=== PATIENT | male | born 1975 | race Caucasian/White ===

== ENCOUNTER 2021-09-07 01:56 | Day surgery (SDC) | payer OTHER, SELFPAY ==
[2021-08-25 14:19] VITALS: BMI 34.7
--- NOTE | 2021-09-06 13:38 | PM.HPGS ---
History of Present Illness History of Present Illness Consent: Risks, benefits, and alternatives have been discussed and questions answered. Patient agrees to proceed with procedure. Chief complaint: GERD Narrative: Angeline Zarate Jr. is a 46 year old malewith LT-sided chest pain. Has been very stressed, daughter has been ill, he is busy with work. 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 Was chewing tobacco for 30 year, has recently quit. In last 2.5 wks, has started to have pain in LT chest. Constant pain, no association with eating, belching in the morning, has gas all the time, drinking coffee makes it worse, gas worse laying down at night. Pain is not radiating to jaw, back, or extremities. Notices in LT side of chest, sometimes spreads to RT. Notices burning down his esophagus. Started taking esomeprazole at direction of his for his sx 5 days, ago, started to help. Taking Tums occasionally for breakthrough pain. Reports feeling heart palpitations with excitement, not at rest. after taking Nexium for 3 weeks or so he is somewhat better but still has some burning. He denies dysphagia Review of Systems Review of Systems: All systems reviewed & are unremarkable except as noted in HPI and below PMFSH Past Medical History Medical History Benign essential HTN Surgical History Surgical History History of laparoscopic cholecystectomy Family History Family History Father Hypertension Family history of elevated blood lipids Mother Family history of malignant neoplasm of uterus Daughter Neuromyelitis Son ADHD Social History Social History Social History: Years smoked: 30 Smoking status: Former smoker Tobacco type: smokeless tobacco Smokeless tobacco user: chewing tobacco Second hand tobacco smoke exposure: No Smoking end date: 07/18/21 Alcohol intake: current Alcohol use details: Pt drinks on weekends only. Unsure how much he drinks. Substance use: never Substance use type: does not use Gender identity (if verbalized by the patient): Male Sexual Orientation (if Verbalized by the Patient): Straight or Heterosexual Meds Home Medications and Allergies Home Medications Medication Instructions Recorded Confirmed Type amlodipine 5 mg tablet 5 mg PO QPM #30 tablet 08/01/21 09/04/21 Rx lisinopril 10 1 tablet PO DAILY #30 tablet 08/23/21 08/25/21 Rx mg-hydrochlorothiazide 12.5 mg tablet esomeprazole magnesium [Nexium] 20 mg PO DAILY 08/25/21 09/04/21 History Allergies Allergy/AdvReac Type Severity Reaction Status Date / Time Penicillins Allergy Mild SOB and Verified 09/07/21 11:44 rash Exam Const: General: alert Orientation/consciousness: patient oriented x3 Resp: Auscultation: clear to auscultation bilaterally Cardio: Rhythm: regular rhythm GI: GI Palp: Yes Soft to palpation and No Tenderness to palpation present (GI) Neuro: General: patient oriented x3 Assessment and Plan Assessment and plan (1) GERD (gastroesophageal reflux disease): Code(s): K21.9 - Gastro-esophageal reflux disease without esophagitis Status: Acute Assessment and Plan: EGD with possible biopsy or dilatation or cautery.
[2021-09-07 11:46] VITALS: BP 161/81; PULSE 99; RESP 18; TEMP 36.3; O2SAT 98
[2021-09-07] MEDS: LACTATED RINGERS 1,000 ML 150 ML IV CONT (11:50)
--- NOTE | 2021-09-07 12:18 | WPDANESEPPF ---
Anes - Initial Pre Proc Eval Procedure: Operation Date: 09/07/21 13:00 Proposed Procedures p Esophagogastroduodenoscopy - Jermain Quinones MD Date/Time: 09/07/21 12:18 Surgeon: Jermain Quinones MD Pre Op Diagnosis: GERD Patient Data Age: 46 Gender: M Height: 1.75 m Weight: 106.7 kg Last Vital Signs Temp 97.3 F L 09/07/21 11:46 Pulse 99 09/07/21 11:46 Resp 18 09/07/21 11:46 BP 161/81 H 09/07/21 11:46 Pulse Ox 98 09/07/21 11:46 Allergies Allergy/AdvReac Type Severity Reaction Status Date / Time Penicillins Allergy Mild SOB and Verified 09/07/21 11:44 rash Home Medications Medication Instructions Recorded Confirmed Type amlodipine 5 mg tablet 5 mg PO QPM #30 tablet 08/01/21 09/04/21 Rx lisinopril 10 1 tablet PO DAILY #30 tablet 08/23/21 08/25/21 Rx mg-hydrochlorothiazide 12.5 mg tablet esomeprazole magnesium [Nexium] 20 mg PO DAILY 08/25/21 09/04/21 History Patient hx anesthesia problems: none Family hx anesthesia problems: none Results Review: All pre-operative results and documents have been reviewed as part of the pre-operative evaluation. [facility] Past Medical History Medical History (Updated 09/04/21 @ 22:13 by Nellie Rhoades MD) Benign essential HTN Surgical History Surgical History History of laparoscopic cholecystectomy Family History Family History Father Hypertension Family history of elevated blood lipids Mother Family history of malignant neoplasm of uterus Daughter Neuromyelitis Son ADHD Social History Social History (Updated 08/23/21 @ 07:54 by Melissa Ba) Social History: Years smoked: 30 Smoking status: Former smoker Tobacco type: smokeless tobacco Smokeless tobacco user: chewing tobacco Second hand tobacco smoke exposure: No Smoking end date: 07/18/21 Alcohol intake: current Alcohol use details: Pt drinks on weekends only. Unsure how much he drinks. Substance use: never Substance use type: does not use Gender identity (if verbalized by the patient): Male Sexual Orientation (if Verbalized by the Patient): Straight or Heterosexual Anes - Eval Final PreProcedure Day of Procedure 09/07/21 12:18 Patient weight: obese Heart: regular rate and rhythm Lungs: clear to auscultation Airway: Mallampati scale class II Neurological: alert and oriented Last oral intake: >/= 8 hours ASA classification: II Emergent: no Anesthetic plan: proceed Anesthesia type and monitoring: general GIVS and standard monitoring Results Review: All pre-operative results and documents have been reviewed as part of the pre-operative evaluation. Informed Consent: The patient's anesthetic plan and its attendant risks and benefits were discussed with the patient/family/POA. Questions were solicited and answers provided to the satisfaction of the patient/family/POA.
[2021-09-07 13:07] VITALS: BP 105/71; PULSE 80; RESP 25; O2SAT 100
[2021-09-07 13:17] VITALS: BP 119/74; PULSE 71; RESP 17; O2SAT 99
[2021-09-07 13:27] VITALS: BP 126/80; PULSE 69; RESP 17; O2SAT 100
== END 2021-09-07 13:39 | disposition home or self-care (01) ==
PROVIDERS: PCP Family Medicine; Visit Provider Internal Medicine Gastroenterology
PROC: 0DJ08ZZ Inspection of Upper Intestinal Tract, Via Natural or Artificial Opening Endoscopic (ICD-10-PCS; CPT 43235; principal; 2021-09-07 13:00)
DX: K21.9 Gastro-esophageal reflux disease without esophagitis (principal); I10 Essential (primary) hypertension; F17.220 Nicotine dependence, chewing tobacco, uncomplicated
CPT/HCPCS: 43235; J2704; J7120

== ENCOUNTER 2025-07-18 11:57 | Emergency (ER) | payer OTHER, SELFPAY ==
[2025-07-18 12:05] VITALS: BP 183/102; PULSE 83; RESP 20; TEMP 36.6; O2SAT 100
--- NOTE | 2025-07-18 12:24 | ED.GENADULT ---
HPI - General Adult General Chief complaint: Unspecified Stated complaint: bp out of whack Related Data Allergies Allergy/AdvReac Type Severity Reaction Status Date / Time Penicillins Allergy Mild SOB and Verified 07/18/25 12:13 rash PMFSH Past Medical History Medical History (Updated 07/18/25 @ 12:27 by Elda Aaron APRN, PROSTHODONTIST/OWNER-C) Benign essential HTN Surgical History Surgical History (Updated 09/27/21 @ 08:45 by Nellie Rhoades MD) History of esophagogastroduodenoscopy History of laparoscopic cholecystectomy 08/2021 Family History Family History Father Hypertension Family history of elevated blood lipids Mother Family history of malignant neoplasm of uterus Daughter Neuromyelitis Son ADHD Social History Social History (Updated 09/27/21 @ 08:03 by Melissa Ba) Social History: Years smoked: 30 Smoking status: Former smoker Tobacco type: smokeless tobacco Smokeless tobacco user: chewing tobacco Second hand tobacco smoke exposure: No Smoking end date: 07/18/21 Alcohol intake: current Drinks per week: 3 Substance use: never Substance use type: does not use Living arrangements: with family Occupation/Education: occupation Gender identity (if verbalized by the patient): Male Sexual Orientation (if Verbalized by the Patient): Straight or Heterosexual Course Course Level of Care: Express Care Visit Vital Signs Vital signs: Vital Signs Temperature 97.9 F 07/18/25 12:05 Pulse Rate 83 07/18/25 12:05 Respiratory Rate 20 07/18/25 12:05 Blood Pressure 183/102 H 07/18/25 12:05 Pulse Oximetry 100 07/18/25 12:05 Oxygen Delivery Room Air 07/18/25 12:05 Temperature 97.9 F 07/18/25 12:05 Pulse Rate 83 07/18/25 12:05 Respiratory Rate 20 07/18/25 12:05 Blood Pressure 183/102 H 07/18/25 12:05 Pulse Oximetry 100 07/18/25 12:05 Oxygen Delivery Room Air 07/18/25 12:05 Medical Decision Making MDM Narrative Medical decision making narrative: will restart patient's blood pressure medication. Educated patient on how to take blood pressure at home, also noted review DASH diet. educated patient several signs and symptoms that would need ER evaluation The patient [facility]. History is obtained from patient who is an independent historian and physical exam was performed. Available medical records were reviewed at this time. Exam findings show no acute concerns or changes; patient is non-toxic appearing and is in no distress. Patient is appropriate for outpatient treatment and follow-up. I have evaluated and discussed social determinants of health with the patient that could potentially impact subsequent diagnosis and treatment plans. Differential diagnosis and treatment plan were discussed with the patient. Patient agrees with discussion and after shared medical decision making agrees with plan of care. All questions were answered to the patient's satisfaction. Differential Diagnosis Differential Diagnosis: elevated blood pressure, hypertension headache, migraine Medical Records Medical records reviewed: Yes I reviewed the external patient's medical records. Vital Signs Vital Signs: Vital Signs Temperature 97.9 F 07/18/25 12:05 Pulse Rate 83 07/18/25 12:05 Respiratory Rate 20 07/18/25 12:05 Blood Pressure 183/102 H 07/18/25 12:05 Pulse Oximetry 100 07/18/25 12:05 Oxygen Delivery Room Air 07/18/25 12:05 Temperature 97.9 F 07/18/25 12:05 Pulse Rate 83 07/18/25 12:05 Respiratory Rate 20 07/18/25 12:05 Blood Pressure 183/102 H 07/18/25 12:05 Pulse Oximetry 100 07/18/25 12:05 Oxygen Delivery Room Air 07/18/25 12:05 Discharge Plan Discharge Clinical Impression: Elevated blood pressure reading, Headache Patient Disposition: Home Condition: Stable Instructions: Antibiotic Form, DASH Eating Plan (ED), Hypertension (ED) Additional Instructions: start taking the lisinopril daily Again take your blood pressure twice daily once once in the evening and keep a record of this until you follow-up with primary care recommended to lower your salt intake and follow a dash diet. The began to notice chest pain, shortness of breath, significant dizziness, increased headache, or more vision changes go to the emergency room for evaluation. Patient Language: Haitian Prescriptions: New lisinopril-hydrochlorothiazide [Zestoretic] 10-12.5 mg tablet 1 tablet PO DAILY Qty: 90 0RF No Action amlodipine 5 mg tablet 5 mg PO QPM Qty: 90 1RF lisinopril-hydrochlorothiazide 10-12.5 mg tablet 1 tablet PO DAILY Qty: 90 1RF famotidine 20 mg tablet See Rx Instructions .ROUTE .COMPLEX Qty: 60 2RF Dose Instruction: TAKE 1 TABLET BY MOUTH TWICE DAILY Rx Instructions: TAKE 1 TABLET BY MOUTH TWICE DAILY Follow-up/Referrals: Nellie Rhoades MD [Primary Care Provider, Family Practice] Time of Disposition: 12:28
--- NOTE | 2025-07-18 12:34 | ED_ITS ---
HPI - Headache General Chief Complaint: Unspecified Stated Complaint: bp out of whack patient presents to the [facility] with complaints of elevated blood pressure at home today. Patient noted over the last few days he has just not felt well occasionally having some blurry vision when looking at his phone, headache, and flushing to face. Patient noted today daughter who is a nurse told him to take his blood pressure this was significantly elevated. Patient reports taking a 10 mg lisinopril that is his 's prescription Because he was nervous about the number of his blood pressure. Patient reports taking blood pressure medications several years ago but he believes this was due to stress in his life at the time. Noted that he stop taking this medication and did not have any follow-ups with his primary care physician. Has not taken any blood pressure readings over the last several years due to overall feeling well. Currently denies chest pain, shortness of breath, palpitations, chest fluttering, like swelling, dizziness, or vision changes. Related Data Allergies Allergy/AdvReac Type Severity Reaction Status Date / Time Penicillins Allergy Mild SOB and Verified 07/18/25 12:13 rash Review of Systems Constitutional: Constitutional: Reports as per HPI, Denies chills, Denies fatigue, Denies fever(s) and Denies weakness Comments: not feeling well Eyes: Eyes: Reports as per HPI, Reports change in vision and Denies photophobia ENT: Reports as per HPI, Denies vertigo and Denies dizziness Cardiovascular: Cardiovascular: Reports as per HPI, Denies chest pain, Denies rapid heart rate, Denies radiating jaw, neck or arm pain and Denies slow heart rate Comments: elevated blood pressure at home Respiratory: Respiratory: Reports no additional respiratory complaints Gastrointestinal: Gastrointestinal: Reports no additional gastrointestinal complaints Genitourinary: Genitourinary: Reports no additional male genitourinary complaints Musculoskeletal: Musculoskeletal: Reports as per HPI, Denies back pain and Denies myalgias Integumentary/Breasts: Skin/Breast: Reports as per HPI, Denies erythema, Denies rash and Denies skin ulcer Comments: flushing feeling to face Neurologic: Reports as per HPI, Denies vertigo, Denies dizziness, Reports headache(s), Denies numbness and Denies weakness Psychiatric: Psychiatric: Reports no additional psychiatric complaints Endocrine: Endocrine: Reports no additional endocrine complaints Hematologic/Lymphatic: Hematologic/Lymphatic: Reports no additional hematologic/lymphatic complaints Allergic/Immunologic: Allergic/Immunologic: Reports no additional allergic/immunologic complaints [facility] Past Medical History Medical History (Updated 07/18/25 @ 12:27 by Elda Aaron APRN, HEARING DOG TRAINER-C) Benign essential HTN Surgical History Surgical History (Updated 09/27/21 @ 08:45 by Nellie Rhoades MD) History of esophagogastroduodenoscopy History of laparoscopic cholecystectomy 08/2021 Family History Family History Father Hypertension Family history of elevated blood lipids Mother Family history of malignant neoplasm of uterus Daughter Neuromyelitis Son ADHD Social History Social History (Updated 09/27/21 @ 08:03 by Melissa Ba) Social History: Years smoked: 30 Smoking status: Former smoker Tobacco type: smokeless tobacco Smokeless tobacco user: chewing tobacco Second hand tobacco smoke exposure: No Smoking end date: 07/18/21 Alcohol intake: current Drinks per week: 3 Substance use: never Substance use type: does not use Living arrangements: with family Occupation/Education: occupation Gender identity (if verbalized by the patient): Male Sexual Orientation (if Verbalized by the Patient): Straight or Heterosexual Exam Const: General: healthy appearing and no acute distress Nutritional Appearance: well nourished Orientation/consciousness: patient oriented x3 Limitations: no limitations HENMT: Head: normal to inspection Ears: external ears normal and TM's normal bilaterally Mouth: Yes Normal oral and palatal mucosa present, Yes lip normal and Yes moist mucous membranes abnormal Throat: posterior oropharynx normal Eyes: Conjunctivae: conjunctivae normal Pupils: Equal, round and reactive pupils present EOM: EOMs intact bilaterally Direct Ophthalmoscopy: no photophobia Neck: Neck: normal visual inspection and no lymphadenopathy Chest: Chest palpation & inspection: normal inspection of the chest Resp: Effort & Inspection: normal respiratory effort Auscultation: clear to auscultation bilaterally Cardio: Rate: regular rate Rhythm: regular rhythm Skin: General skin exam: normal color Rashes: no rashes Wounds: no wounds Other: no flushing noted to chest, face,or neck Neuro: General: patient oriented x3, moves all extremities and no meningeal signs Cranial nerves: Yes Nystagmus not present Speech: normal speech Gait exam (Neuro): Normal gait present Extrem: General: normal to inspection, no clubbing, cyanosis or edema and no pedal edema Psych: Mental Status: mental status grossly normal Affect: normal affect Attitude: cooperative Course Course Level of Care: Express Care Visit Vital Signs Vital signs: Vital Signs Temperature 97.9 F 07/18/25 12:05 Pulse Rate 83 07/18/25 12:05 Respiratory Rate 20 07/18/25 12:05 Blood Pressure 183/102 H 07/18/25 12:05 Pulse Oximetry 100 07/18/25 12:05 Oxygen Delivery Room Air 07/18/25 12:05 Temperature 97.9 F 07/18/25 12:05 Pulse Rate 83 07/18/25 12:05 Respiratory Rate 20 07/18/25 12:05 Blood Pressure 183/102 H 07/18/25 12:05 Pulse Oximetry 100 07/18/25 12:05 Oxygen Delivery Room Air 07/18/25 12:05 MDM - Headache MDM Narrative Medical decision making narrative: Spoke patient his elevated pressure while in Express Care today. Noted he needs to start taking his blood pressure again in follow-up with primary care physician as soon as possible. Recommended patient take blood pressure twice daily until follow-up with new primary care physician. Recommended patient follow a dash diet. Educated patient on several signs and symptoms that should be evaluated in the emergency room. The patient was evaluated by myself in the [facility] care. History is obtained from patient who is an independent historian and physical exam was performed. Available medical records were reviewed at this time. Exam findings show no acute concerns or changes; patient is non-toxic appearing and is in no distress. Patient is appropriate for outpatient treatment and follow-up. I have evaluated and discussed social determinants of health with the patient that could potentially impact subsequent diagnosis and treatment plans. Differential diagnosis and treatment plan were discussed with the patient. Verna ent agrees with discussion and after shared medical decision making agrees with plan of care. All questions were answered to the patient's satisfaction. Differential Diagnosis Differential diagnosis: Likely migraine, tension headache, headache, meningitis, postconcussion syndrome and other (elevated blood pressure ) Medical Records Attestation: I reviewed the patient's medical records. Discharge Plan Discharge Clinical Impression: Elevated blood pressure reading, Headache Patient Disposition: Home Condition: Stable Instructions: Antibiotic Form, DASH Eating Plan (ED), Hypertension (ED) Additional Instructions: start taking the lisinopril daily Again take your blood pressure twice daily once once in the evening and keep a record of this until you follow-up with primary care recommended to lower your salt intake and follow a dash diet. The began to notice chest pain, shortness of breath, significant dizziness, increased headache, or more vision changes go to the emergency room for evaluation. Patient Language: Romanian Prescriptions: New lisinopril-hydrochlorothiazide [Zestoretic] 10-12.5 mg tablet 1 tablet PO DAILY Qty: 90 0RF No Action amlodipine 5 mg tablet 5 mg PO QPM Qty: 90 1RF lisinopril-hydrochlorothiazide 10-12.5 mg tablet 1 tablet PO DAILY Qty: 90 1RF famotidine 20 mg tablet See Rx Instructions .ROUTE .COMPLEX Qty: 60 2RF Dose Instruction: TAKE 1 TABLET BY MOUTH TWICE DAILY Rx Instructions: TAKE 1 TABLET BY MOUTH TWICE DAILY Follow-up/Referrals: Nellie Rhoades MD [Primary Care Provider, Family Practice] Time of Disposition: 12:28
== END 2025-07-18 12:30 | disposition home or self-care (01) ==
PROVIDERS: Emergency Provider Nurse Practitioner Family; PCP Family Medicine
DX: I10 Essential (primary) hypertension (principal); R51.9 Headache, unspecified
CPT/HCPCS: 99213; G0463

== ENCOUNTER 2025-07-21 16:44 | Emergency (ER) | payer OTHER, SELFPAY ==
[2025-07-21] VITALS (40 sets, daily range): BP systolic 137–189; BP diastolic 86–117; PULSE 61–95; RESP 8–23; TEMP 36.9; O2SAT 85–100
--- NOTE | ~2025-07-21 | XR_ITS ---
EXAMINATION: XR chest 2V, 07/21/2025 17:15 COMMUNITY RECREATION COORDINATOR HISTORY: chest pain WITH ELEVATED BP COMPARISON: No comparisons available. Technique: 2 views obtained. Findings: The lungs are clear, no effusion. No pneumothorax. Heart is normal size. Mediastinal and hilar contours are within normal limits. Bony thorax no acute abnormality. Impression: No acute cardiopulmonary abnormality. Reviewed, dictated and finalized at location P. UNITY RECREATION COORDINATOR Impression: No acute cardiopulmonary abnormality.
--- NOTE | 2025-07-21 16:45 | ECG_ITS ---
Test Date: 2025-07-21 18:29:17 Measurements Intervals [place] Rate: 82 P: 46 HI: 128 QRS: 27 QRSD: 106 T: 18 QT: 359 QTc: 420 Interpretive Statements SINUS RHYTHM MODERATE ST DEPRESSION [0.05+ mV ST DEPRESSION] No previous ECG available for comparison Electronically Signed On 07-21-2025 21:28:13 COMMUNICATIONS PLANNER by Vazquez Victoria M.D.
--- OUTSIDE RECORDS SUMMARY | 2025-07-21 17:01 | XMS_ITS ---
Author Organization Unknown ENCOUNTERS Encounter Performer Location Date Diagnosis Diagnosis Status Pre Admit [facility] [address] [place] [address] [id number] Outpatient Jermain Quinones [facility] [address] [place] [address] [id number] [place] *Note: Encounters from your own facility or health system may be excluded. Allergies, Adverse Reactions, Alerts Allergen Type Severity Identification Date Penicillins drug allergy 2 [id number] Medications Name Date Quantity Days Supplied GPI Number
--- NOTE | 2025-07-21 17:52 | ED_ITS ---
HPI - Chest Pain General Chief Complaint: Chest Pain <HAMILTON Oglesby - Last Filed: 07/22/25 15:49> Stated Complaint: chest pain <HAMILTON Oglesby - Last Filed: 07/22/25 15:49> Time Seen by Provider: 07/21/25 17:53 <HAMILTON Oglesby - Last Filed: 07/22/25 15:49> Focused HPI: 50 year old male presenting with hypertension since this morning. Associated symptoms include cp and mild headache. Denies vision changes, fevers/chills, nausea/vomiting. Cp is right-sided and does not radiate anywhere. GENERAL: Well-appearing, well-nourished, and in no acute distress. HEAD: Normocephalic, atraumatic. CHEST: Clear to auscultation. ?No respiratory distress. HEART: Regular rate and rhythm.? NEURO: ?Alert and oriented x3. Patient screened in triage and initial orders placed.? ?Additional care and disposition to be based upon?diagnostic testing and treatment. <HAMILTON Oglesby - Last Filed: 07/22/25 15:49> History of Present Illness HPI narrative: I agree with the above HPI <Dayana Orellana APRN - Last Filed: 07/21/25 23:26> Related Data Allergies/Adverse Reactions: Allergies Allergy/AdvReac Type Severity Reaction Status Date / Time Penicillins Allergy Mild SOB and Verified 07/21/25 19:02 rash <HAMILTON Oglesby - Last Filed: 07/22/25 15:49> Review of Systems 2 Review of Systems: All systems reviewed & are unremarkable except as noted in HPI and below <Dayana Orellana APRN - Last Filed: 07/21/25 23:26> PMFSH Past Medical History Medical History: Medical History Benign essential HTN <HAMILTON Oglesby - Last Filed: 07/22/25 15:49> Surgical History Surgical History: Surgical History History of esophagogastroduodenoscopy History of laparoscopic cholecystectomy 08/2021 <HAMILTON Oglesby - Last Filed: 07/22/25 15:49> Family History Family History: Family History Father Hypertension Family history of elevated blood lipids Mother Family history of malignant neoplasm of uterus Daughter Neuromyelitis Son ADHD <HAMILTON Oglesby - Last Filed: 07/22/25 15:49> Social History Social History: Social History Social History: Years smoked: 30 Tobacco type: smokeless tobacco Smokeless tobacco user: chewing tobacco Second hand tobacco smoke exposure: No Smoking end date: 07/18/21 Alcohol intake: current Drinks per week: 3 Substance use: never Substance use type: does not use Living arrangements: with family Occupation/Education: occupation Gender identity (if verbalized by the patient): Male Sexual Orientation (if Verbalized by the Patient): Straight or Heterosexual <HAMILTON Oglesby - Last Filed: 07/22/25 15:49> Exam 2 Narrative: GENERAL: Well appearing, well-nourished, non-toxic, in no acute distress. HEAD: Normocephalic, atraumatic. NECK: Supple. No adenopathy, no masses. RESPIRATORY: Airway patent, respirations nonlabored. Clear to auscultation bilaterally, no rales, rhonchi, wheezing. CARDIOVASCULAR: Regular rate and rhythm without murmurs, rubs, or gallops. Peripheral pulses 2+ and equal bilaterally. ABDOMINAL: Soft, nontender, nondistended, no hepatosplenomegaly. Normoactive BS. MUSCULOSKELETAL: Moves all extremities. Strength/ROM intact without gross deformities. SKIN: Warm, dry, normal color. No rashes. NEURO: A&O X3. Speech clear. Cranial nerves II-XII intact. No ataxic movements. PSYCHIATRIC: Appropriate mood and affect. Normal interaction. <Dayana Orellana APRN - Last Filed: 07/21/25 23:26> Course Vital Signs Vital signs: Vital Signs Temperature 98.5 F 07/21/25 16:59 Pulse Rate 95 07/21/25 16:59 Respiratory Rate 16 07/21/25 16:59 Blood Pressure 175/99 H 07/21/25 16:59 Pulse Oximetry 100 07/21/25 16:59 Temperature 98.5 F 07/21/25 16:59 Pulse Rate 85 07/21/25 23:30 Respiratory Rate 18 07/21/25 23:30 Blood Pressure 161/92 H 07/21/25 23:02 Pulse Oximetry 85 L 07/21/25 23:30 Oxygen Delivery Room Air 07/21/25 19:05 <HAMILTON Oglesby - Last Filed: 07/22/25 15:49> Vital Signs Temperature 98.5 F 07/21/25 16:59 Pulse Rate 95 07/21/25 16:59 Respiratory Rate 16 07/21/25 16:59 Blood Pressure 175/99 H 07/21/25 16:59 Pulse Oximetry 100 07/21/25 16:59 Temperature 98.5 F 07/21/25 16:59 Pulse Rate 85 07/21/25 23:30 Respiratory Rate 18 07/21/25 23:30 Blood Pressure 161/92 H 07/21/25 23:02 Pulse Oximetry 85 L 07/21/25 23:30 Oxygen Delivery Room Air 07/21/25 19:05 <Dayana Orellana APRN - Last Filed: 07/21/25 23:26> MDM - Chest Pain MDM Narrative Medical decision making narrative: Patient is a 50-year-old male who presents to the ER with chest dullness and high blood pressure. He reports he went to urgent care approximately 1 week ago and they started him on lisinopril. Patient reports he has not had any associated symptoms including headaches, shortness of breath, lower extremity swelling. He does endorse a slight cough for the past several weeks. Patient is adamant he is not having chest pain but rather dullness. Since starting the lisinopril he endorses diarrhea, but denies abdominal pain. He also denies any recent fevers, shortness of breath, nausea/vomiting, or increased pain with movement changes. Patient endorses a history of high blood pressure and reports he was on lisinopril and amlodipine in the past. He also reports he has been on GERD medications in the past. Labs Ordered: CBC, CMP, troponin, proBNP, PTT, INR, D-dimer, lipase, TSH Imaging Ordered: Chest x-ray Medications Ordered: Ativan 1 mg p.o., Norvasc 5 mg p.o., GI cocktail Results: Patient's chest x-ray indicates The lungs are clear, no effusion. No pneumothorax. Heart is normal size. Mediastinal and hilar contours are within normal limits. Bony thorax no acute abnormality. Diagnosis: GERD, atypical chest pain, primary hypertension Risks: HEART score: low risk HEART Score for Major Cardiac Events from [employer] on 07/21/2025 All calculations should be rechecked by clinician prior to use RESULT SUMMARY: 3 points Low Score (0-3 points) Risk of MACE of 0.9-1.7%. INPUTS: History ?> 0 = Slightly suspicious EKG ?> 1 = Non-specific repolarization disturbance Age ?> 1 = 45-64 Risk factors ?> 1 = 1-2 risk factors Initial troponin ?> 0 = <Normal limit Consults: cardiology (outpatient) Patient Education/Shared MDM: Results of lab work and imaging shared with patient. He endorses improvement of symptoms following medication administration. Patient strongly advised to maintain hydration status upon discharge and follow-up with his PCP as soon as possible. It was advised patient can also follow up with Cardiology for further evaluation and treatment. He will be discharged home with a prescription for amlodipine and Pepcid. Strict return precautions provided. Patient verbalized understanding and is in agreement with plan. Vital signs stable at time of discharge. All questions answered. <Dayana Orellana APRN - Last Filed: 07/21/25 23:26> Differential Diagnosis Differential diagnosis: Likely atypical chest pain, st elevation myocardial infarction, costochondritis and other (GERD, musculoskeletal strain, hypertension) <Dayana Orellana APRN - Last Filed: 07/21/25 23:26> Lab Data Attestation: I reviewed the patient's lab results. <Dayana Orellana APRN - Last Filed: 07/21/25 23:26> Result diagrams: 07/21/25 19:01 07/21/25 19:01 <HAMILTON Oglesby - Last Filed: 07/22/25 15:49> Labs: Lab Results 07/21/25 07/21/25 Range/Units 19:01 22:30 WBC 8.7 (4.5-10.0) K/mm3 RBC 5.32 (4.6-6.20) M/mm3 Hgb 17.1 (14.0-18.0) g/dL Hct 48.2 (42.0-52.0) % MCV 90.6 (80-100) fl MCH 32.1 (26-34) pg MCHC 35.5 (32-36) g/dl RDW 11.7 (11.5-14.5) % Plt Count 360 (150-375) k/mm3 MPV 11.3 H (7.4-10.4) fl Immature Gran % (Auto) 0.2 (0-0.5) % Neut % (Auto) 71.4 (45.5-73.1) % Lymph % (Auto) 19.1 (18.3-44.2) % [place] % (Auto) 8.2 (2.6-8.5) % Eos % (Auto) 0.5 (0-4.4) % Baso % (Auto) 0.6 (0.2-1.2) % Lymph # (Auto) 1.65 (0.9-3.2) K/mm3 [place] # (Auto) 0.7 H (0.1-0.6) K/mm3 Eos # (Auto) 0.0 (0-0.3) K/mm3 Baso # (Auto) 0.1 (0.0-0.1) K/mm3 Abs Immat Gran (auto) 0.02 (0.00-0.031) K/mm3 Absolute Neuts (auto) 6.2 (1.3-6.7) K/mm3 Absolute Nucleated RBC 0.000 (0.0-0.012) K/mm3 Nucleated RBC % 0.0 (0.0-0.2) % PT 13.2 (11.1-14.7) Seconds INR 1.0 APTT 26.3 (22.3-36.8) Seconds D-Dimer < 0.27 (<0.48) ug/mL Sodium 140 (137-145) mmol/L Potassium 3.5 (3.4-5.0) mmol/L Chloride 100 (98-107) mmol/L Carbon Dioxide 26 (22-30) mmol/L Anion Gap 14 H (4-12) mmol/L BUN 13 (9-20) mg/dL Creatinine 0.88 (0.7-1.3) mg/dL Estim Creat Clear Calc 106 ml/min Estimated GFR > 60 (59 - ) Glucose 105 (65-110) mg/dL Calcium 10.1 (8.4-10.2) mg/dL Total Bilirubin 1.1 (0.2-1.3) mg/dL AST 47 (17-59) U/L ALT 66 H (6-50) U/L Alkaline Phosphatase 71 (38-126) U/L Troponin I < 0.012 < 0.012 (0.000-0.034) ng/mL NT-Pro-B Natriuret Pep < 20 (19.9-100) pg/mL Total Protein 9.4 H (6.3-8.2) g/dL Albumin 5.3 H (3.5-5.1) g/dL Lipase 45 (23-300) U/L TSH (Reflex) 3.070 (0.465-4.68) uIU/mL <HAMILTON Oglesby - Last Filed: 07/22/25 15:49> Lab Results 07/21/25 07/21/25 Range/Units 19:01 22:30 WBC 8.7 (4.5-10.0) K/mm3 RBC 5.32 (4.6-6.20) M/mm3 Hgb 17.1 (14.0-18.0) g/dL Hct 48.2 (42.0-52.0) % MCV 90.6 (80-100) fl MCH 32.1 (26-34) pg MCHC 35.5 (32-36) g/dl RDW 11.7 (11.5-14.5) % Plt Count 360 (150-375) k/mm3 MPV 11.3 H (7.4-10.4) fl Immature Gran % (Auto) 0.2 (0-0.5) % Neut % (Auto) 71.4 (45.5-73.1) % Lymph % (Auto) 19.1 (18.3-44.2) % [place] % (Auto) 8.2 (2.6-8.5) % Eos % (Auto) 0.5 (0-4.4) % Baso % (Auto) 0.6 (0.2-1.2) % Lymph # (Auto) 1.65 (0.9-3.2) K/mm3 [place] # (Auto) 0.7 H (0.1-0.6) K/mm3 Eos # (Auto) 0.0 (0-0.3) K/mm3 Baso # (Auto) 0.1 (0.0-0.1) K/mm3 Abs Immat Gran (auto) 0.02 (0.00-0.031) K/mm3 Absolute Neuts (auto) 6.2 (1.3-6.7) K/mm3 Absolute Nucleated RBC 0.000 (0.0-0.012) K/mm3 Nucleated RBC % 0.0 (0.0-0.2) % PT 13.2 (11.1-14.7) Seconds INR 1.0 APTT 26.3 (22.3-36.8) Seconds D-Dimer < 0.27 (<0.48) ug/mL Sodium 140 (137-145) mmol/L Potassium 3.5 (3.4-5.0) mmol/L Chloride 100 (98-107) mmol/L Carbon Dioxide 26 (22-30) mmol/L Anion Gap 14 H (4-12) mmol/L BUN 13 (9-20) mg/dL Creatinine 0.88 (0.7-1.3) mg/dL Estim Creat Clear Calc 106 ml/min Estimated GFR > 60 (59 - ) Glucose 105 (65-110) mg/dL Calcium 10.1 (8.4-10.2) mg/dL Total Bilirubin 1.1 (0.2-1.3) mg/dL AST 47 (17-59) U/L ALT 66 H (6-50) U/L Alkaline Phosphatase 71 (38-126) U/L Troponin I < 0.012 < 0.012 (0.000-0.034) ng/mL NT-Pro-B Natriuret Pep < 20 (19.9-100) pg/mL Total Protein 9.4 H (6.3-8.2) g/dL Albumin 5.3 H (3.5-5.1) g/dL Lipase 45 (23-300) U/L TSH (Reflex) 3.070 (0.465-4.68) uIU/mL <Dayana Orellana APRN - Last Filed: 07/21/25 23:26> Imaging Data Attestation: I personally reviewed and interpreted this imaging study as follows: < Dayana Orellana APRN - Last Filed: 07/21/25 23:26> Radiologist's impression: Impressions Chest X-Ray 07/21/25 17:37 Impression: No acute cardiopulmonary abnormality. <Dayana Orellana APRN - Last Filed: 07/21/25 23:26> Discharge Plan Discharge Clinical Impression: GERD (gastroesophageal reflux disease), Hypertension, Atypical chest pain <HAMILTON Oglesby - Last Filed: 07/22/25 15:49> Patient Disposition: Home <HAMILTON Oglesby - Last Filed: 07/22/25 15:49> Condition: Stable <HAMILTON Oglesby - Last Filed: 07/22/25 15:49> Instructions: Antibiotic Form <HAMILTON Oglesby - Last Filed: 07/22/25 15:49> Additional Instructions: Please return to the ER with any worsening symptoms. Follow-up with primary care provider as soon as possible for further evaluation and treatment. You can also follow-up with Cardiology, as needed. Take all medications as prescribed, including regularly scheduled medications. You may take Tylenol for pain control. <HAMILTON Oglesby - Last Filed: 07/22/25 15:49> Patient Language: [place]ian <HAMILTON Oglesby - Last Filed: 07/22/25 15:49> Prescriptions: New amlodipine [Norvasc] 5 mg tablet 5 mg PO DAILY Qty: 30 0RF famotidine [Pepcid] 40 mg tablet 40 mg PO BID Qty: 60 0RF No Action lisinopril-hydrochlorothiazide 10-12.5 mg tablet 1 tablet PO DAILY Qty: 90 1RF <HAMILTON Oglesby Last Filed: 07/22/25 15:49> Follow-up/Referrals: Trung Lynn MD [Primary Care Provider, Family Practice] Eloy Hodge MD [Physician, Cardiology] <HAMILTON Oglesby - Last Filed: 07/22/25 15:49> Stand Alone Forms: Work/School Release IP <HAMILTON Oglesby - Last Filed: 07/22/25 15:49> Time of Disposition: 23:27 <HAMILTON Oglesby - Last Filed: 07/22/25 15:49> 23:27 <Dayana Orellana APRN - Last Filed: 07/21/25 23:26>
[2025-07-21] MEDS: ASPIRIN 81 MG CHEWABLE TABLET 324 MG PO (18:36)
[2025-07-21 19:10] LABS: Hematocrit 48.2 % (42.0-52.0); Hemoglobin 17.1 g/dL (14.0-18.0); Immature Granulocyte Percent A 0.2 % (0-0.5); Lymphocytes Absolute Auto 1.65 K/mm3 (0.9-3.2); Mean Corpuscular HGB Conc 35.5 g/dl (32-36); Mean Corpuscular Hemoglobin 32.1 pg (26-34); Mean Corpuscular Volume 90.6 fl (80-100); Nucleated Red Blood Cells Absolute Auto 0.000 K/mm3 (0.0-0.012); Nucleated Red Blood Cells Perc 0.0 % (0.0-0.2); Platelet Count Result 360 k/mm3 (150-375); Red Blood Count 5.32 M/mm3 (4.6-6.20); White Blood Count 8.7 K/mm3 (4.5-10.0)
[2025-07-21 19:22] LABS: Alanine Aminotransferase 66 U/L (6-50); Albumin Level 5.3 g/dL (3.5-5.1); Alkaline Phosphatase 71 U/L (38-126); Anion Gap 14 mmol/L (4-12); Aspartate Amino Transferase 47 U/L (17-59); Bilirubin,Total 1.1 mg/dL (0.2-1.3); Blood Urea Nitrogen 13 mg/dL (9-20); Calcium 10.1 mg/dL (8.4-10.2); Carbon Dioxide 26 mmol/L (22-30); Chloride 100 mmol/L (98-107); Estimated CRCL calculation 106 ml/min; Estimated Glomerular Filt Rate > 60; Glucose 105 mg/dL (65-110); INR 1.0; Lipase 45 U/L (23-300); Partial Thromboplastin Time 26.3 Seconds (22.3-36.8); Potassium 3.5 mmol/L (3.4-5.0); Prothrombin Time 13.2 Seconds (11.1-14.7); Sodium 140 mmol/L (137-145); Total Protein 9.4 g/dL (6.3-8.2)
[2025-07-21 19:34] LABS: Troponin I < 0.012 ng/mL (0.000-0.034)
[2025-07-21] MEDS: BELLADONNA ALK/PHENOB ELIX 10 ML, MAG HYDROX/ALUMINUM HYD/SIMETH 30 ML, LIDOCAINE 2% VI... PO (21:13)
[2025-07-21] MEDS: LORazepam (*CRX) 1 MG TABLET PO (21:13)
[2025-07-21 21:22] LABS: NT Pro B Type Natriuretic Pept < 20 pg/mL (19.9-100)
[2025-07-21 21:47] LABS: Thyroid Stimulating Hormone Reflex 3.070 uIU/mL (0.465-4.68)
--- NOTE | 2025-07-21 22:01 | ECG_ITS ---
Test Date: 2025-07-21 22:22:01 Measurements Intervals [place] Rate: 65 P: 50 PA: 157 QRS: 14 QRSD: 110 T: 9 QT: 404 QTc: 420 Interpretive Statements SINUS RHYTHM NONSPECIFIC T-WAVE ABNORMALITY Compared to ECG 07/21/2025 18:29:17 T-wave abnormality now present ST (T wave) deviation no longer present Electronically Signed On 07-22-2025 06:38:00 VICE PRESIDENT OF NURSING by Vazquez Victoria M.D.
[2025-07-21 23:17] LABS: Troponin I < 0.012 ng/mL (0.000-0.034)
== END 2025-07-21 23:42 | disposition home or self-care (01) ==
PROVIDERS: Student in an Organized Health Care Education/Training Program; Emergency Provider Registered Nurse; PCP Family Medicine
DX: I10 Essential (primary) hypertension (principal); R07.89 Other chest pain; K21.9 Gastro-esophageal reflux disease without esophagitis; Z87.891 Personal history of nicotine dependence; Z90.49 Acquired absence of other specified parts of digestive tract; Z79.899 Other long term (current) drug therapy
CPT/HCPCS: 36415; 71046; 80053; 83690; 83880; 84443; 84484; 85025; 85380; 85610; 85730; 93005; 99284; A9270